=== PATIENT | female | born 1950 | race Caucasian/White ===

== ENCOUNTER → 2016-08-25 | Outpatient (CLI) | payer BC ==
[~2016-08-25] MED LIST: ALEN40TA PO; ASCO500C15 PO; CALC-603 PO; CHOL10003 PO; CHOL400T10 PO; FEXO60TA99 PO; LUTE6CAP6 PO; OMEG500C7 PO
--- NOTE | 2016-08-25 16:54 | DI ---
EXAM: US PELVIC NON OB W/TRANS VAG DATE: 08/25/2016 12:00 AM ENCOUNTER: Initial INDICATION: ITS.REASON: R10.2 PELVIC PERINEAL PAIN COMPARISON: No prior studies available for comparison. TECHNIQUE: Multiple real time chao scale and color doppler sonographic images of the pelvis were obtained transabdominally and transvaginally. FINDINGS: The uterus measures 8.6 x 3.2 x 4.0 cm. No myometrial lesions seen. The endometrium is of normal thickness measuring 3.6 mm. No free fluid is seen in the posterior cul-de-sac. The right ovary measures 1.7 x 2.1 x 1.3 cm. The left ovary measures 1.4 x 1.5 x 1.2 cm. Both ovaries are normal size and echogenicity demonstrating normal vascular flow. IMPRESSION: Unremarkable pelvic ultrasound. .
== END ==
LOC: IMA 16:04
PROVIDERS: ATTEND Family Medicine
DX: R10.2 Pelvic and perineal pain (principal)